=== PATIENT | male | born 1945 | race Caucasian/White ===

== ENCOUNTER 2016-11-29 21:33 | Emergency (ER) | payer OTHER ==
[2016-11-29 22:15] VITALS: BP 143/65
--- NOTE | 2016-11-30 01:37 | ER ---
DATE SEEN: 11/29/2016 TIME SEEN: The patient was seen at 2140 hours. CHIEF COMPLAINT: Drainage from surgical wound, from 11/22/2016. SURGERY: Laminectomy performed at [facility]. He postoperatively had more bleeding from the wound as anticipated. On 11/24, he had soaked dressing. He has progressive decreased bleeding since then. He was seen at [facility] as dressings were changed on the subsequent day, 11/25 and the bleeding has slowly decreased. He was also seen on 11/29/2016 at [facility] and noted slight bruising and drainage and change of dressing also. He is here to see me because he has a small area of blood on his dressing and is concerned about it. His pain has markedly decrease from what it was before the surgery, although he has constant recurrent persistent pre-surgery and postop surgery pain that radiates down the anterior thigh on the right side to his knee. He denies dysesthesia in lower extremities. His gait is decreased. He walks with slight truncal flexion because of his massive obesity, increased girth, and the chronic low back pain and the surgery. He was a staff sergeant in the for 21 years and he is a . The patient is obese, 255 pounds. Smoked 5 packs a day for 20 years, but stopped many years ago (1962). Alcohol negative. At one time in the was heavy into drinking alcohol. Denies drug abuse. He is treated for hypertension. CURRENT MEDICATIONS: 1. Diabetes, also hypertension. Was treated for hypertension and uses tamsulosin. 2. Tizanidine for his back pain. 3. Aspirin daily. 4. Docusate sodium. 5. Amlodipine. 6. Norvasc 5 mg daily. 7. Chlorpheniramine p.r.n. 8. Finasteride 5 mg. 9. Glipizide 2.5 mg for breakfast. 10.Hydrochlorothiazide 25 mg daily. ALLERGIES: None. REVIEW OF SYSTEMS: Otherwise, negative except for noted above. PHYSICAL EXAMINATION: VITAL SIGNS: Blood pressure of 169/77, heart rate 80, respirations 20, oxygen saturation 98%, temperature is 36.5 degrees. CONSTITUTIONAL: Markedly obese, has truncal flexion. He has mild discomfort in lower back, but he attributes it to his back surgery and that is not new, it has been present since surgery. He has chronic pain that travels down his right anterior thigh, which is not new. Very pleasant, missing several teeth. He is articulate. He is attended by a relative young girl. HEENT: TMs negative. Pharynx without abnormality. LUNGS: Clear to auscultation without rales, rhonchi, or wheezes. HEART: S1, S2. No irregular rate or rhythm. Distant heart sounds noted. ABDOMEN: Soft. Bowel sounds present. No abdominal discomfort. Wound dressing taken off. He has mild serosanguineous drainage about a centimeter and half, right superior portion of the wound. No evidence for fresh red blood bleeding. The wound is clean. There is mild ecchymosis in the lateral side of the wound. The Steri-Strips are normal in appearance. EXTREMITIES: Without tenderness, decreased muscle strength and atrophy of right thigh compared to the left thigh. Deep tendon reflexes, present knee jerks but absent ankle jerks. Did not do a straight leg raise. ASSESSMENT: 1. Serosanguineous fluid from the wound, previous lumbar surgeries 7 days ago. He is 6 days postop. 2. Obesity. 3. History of heavy smoking 25-pack per day for 20 years at one time. Alcohol excess up until 1962, then he discontinued drinking. Decreased hearing. PLAN: Reassure. keeping changing the dressing as instructed by the surgical staff. If any sign of erythema, increased swelling, increased warmth or tenderness see surgeon. /[id number] SHI/COLETTE HERNÁNDEZ
== END 2016-11-29 22:15 | disposition home or self-care (01) ==
LOC: FB.ED 21:33
DX: T81.89XA Other complications of procedures, not elsewhere classified, initial encounter (principal); F17.210 Nicotine dependence, cigarettes, uncomplicated; E11.9 Type 2 diabetes mellitus without complications; I10 Essential (primary) hypertension; Z79.82 Long term (current) use of aspirin; Z79.899 Other long term (current) drug therapy
CPT/HCPCS: 99282; 99283

== ENCOUNTER 2018-11-12 11:12 | Inpatient (IN) | payer OTHER ==
--- NOTE | 2018-11-12 11:40 | EDM.PDOC ---
ED HPI GENERAL MEDICAL PROBLEM - General Chief Complaint: General Stated Complaint: SOB, FEVER, DIZZINESS Time Seen by Provider: 11/12/18 11:12 Source of Information: Reports: Patient, Family History Limitations: Reports: Physical Impairment, Respiratory Distress - History of Present Illness INITIAL COMMENTS - FREE TEXT/NARRATIVE: 73 y.o.w.m with a H/O COPD, chronic low back pain, S/P umbilical hernia repair at the [facility] recently, came to the ed with his Daughter due to abd. pain, SOB. His Pulse ox was 88 on arrival. He has a breathing machine at home which would not help. He can walk only short distances. The limiting factor is not his breathing but his low back pain, which is chronic. [facility] called [facility], advising him to go to [facility]. No trauma, no CP. Temp 38.4 BP 154/74 Pulse 99 RR 20 Pulse ox 90% on RA Onset Date: 11/09/18 Onset Time: 07:00 Duration: Day(s):, Getting Worse, Intermittent Location: Reports: Chest, Abdomen, Back Quality: Reports: Dull Severity: Moderate Improves with: Reports: Rest Worsens with: Reports: Movement Context: Reports: Other (COPD, Low back pain, abd. pain) Associated Symptoms: Reports: Cough, Shortness of Breath, Other (chronic low back pin) Generalized Pain Score (Numeric/FACES): 10 - Related Data Allergies Allergy/AdvReac Type Severity Reaction Status Date / Time No Known Allergies Allergy Verified 11/12/18 11:16 Home Meds: Home Meds Albuterol Sulfate [Proventil Hfa] 1 puff INH QID 11/29/16 [History] Finasteride 5 mg PO DAILY 11/29/16 [History] Tamsulosin [Tamsulosin 24 Hr] 0.4 mg PO BEDTIME 11/29/16 [History] amLODIPine [Norvasc] 5 mg PO DAILY 11/29/16 [History] glipiZIDE [Glucotrol XL] 10 mg PO BID 11/29/16 [History] Baclofen 10 mg PO TID 06/23/18 [History] Gabapentin [Neurontin] 300 mg PO TID 06/23/18 [History] Lidocaine 5% [Lidoderm 5%] 2 patch TOP DAILY 06/23/18 [History] Simvastatin 20 mg PO BEDTIME 06/23/18 [History] Vardenafil HCl [Levitra] 20 mg PO DAILY PRN 06/23/18 [History] Acetaminophen [Tylenol] 975 mg PO Q6H 11/12/18 [History] Cyclobenzaprine [Flexeril] 10 mg PO TID PRN 11/12/18 [History] Polyethylene Glycol 3350 [Miralax] 17 gm PO DAILY 11/12/18 [History] oxyCODONE 5 mg PO Q6H PRN 11/12/18 [History] Past Medical History Cardiovascular History: Reports: High Cholesterol, Hypertension Respiratory History: Reports: Asthma Genitourinary History: Reports: Prostate Disorder Musculoskeletal History: Reports: Arthritis Neurological History: Reports: Other (See Below) Other Neuro History: numbness R leg from back. Endocrine/Metabolic History: Reports: Diabetes, Type I, Obesity/BMI 30+ Dermatologic History: Reports: Other (See Below) Other Dermatologic History: freq rashes - Infectious Disease History Infectious Disease History: Reports: Chicken Pox - Past Surgical History GI Surgical History: Reports: Colonoscopy, Hernia, Inguinal, Hernia Repair/Other Male Surgical History: Reports: None Neurological Surgical History: Reports: Other (See Below) Other Neurological Surgeries/Procedures: back surgery x 3 Musculoskeletal Surgical History: Reports: Other (See Below) Other Musculoskeletal Surgeries/Procedures:: L3-4 laminectomy 11-22-16 Social & Family History - Family History Family Medical History: Noncontributory - Tobacco Use Smoking Status *Q: Former Smoker Used Tobacco, but Quit: Yes Month/Year Tobacco Last Used: 1988 - Caffeine Use Caffeine Use: Reports: None - Recreational Drug Use Recreational Drug Use: No ED ROS GENERAL - Review of Systems Review Of Systems: See Below Constitutional: Reports: No Symptoms HEENT: Reports: No Symptoms Respiratory: Reports: Shortness of Breath Cardiovascular: Reports: No Symptoms Endocrine: Reports: No Symptoms GI/Abdominal: Reports: Abdominal Pain (periumbilical pain) : Reports: No Symptoms Musculoskeletal: Reports: Back Pain Skin: Reports: Wound (healing surgical abd. wound) Neurological: Reports: No Symptoms Psychiatric: Reports: No Symptoms Hematologic/Lymphatic: Reports: No Symptoms Immunologic: Reports: No Symptoms ED EXAM, GENERAL - Physical Exam Exam: See Below Exam Limited By: Physical Impairment General Appearance: Alert, WD/WN, Obese (morbid) Eye Exam: Bilateral Eye: Normal Inspection Ears: Normal External Exam Ear Exam: Bilateral Ear: Auricle Normal Nose: Normal Inspection, Normal Mucosa, No Blood Throat/Mouth: Normal Lips, Normal Voice, No Airway Compromise, Other (poor denti ) Head: Atraumatic, Normocephalic Neck: Normal Inspection, Supple, Non-Tender, Full Range of Motion Respiratory/Chest: Respiratory Distress (O2 88% on RA), Decreased Breath Sounds Cardiovascular: Normal Peripheral Pulses, Regular Rate, Rhythm Peripheral Pulses: 1+: Brachial (R) GI/Abdominal: Normal Bowel Sounds, Tender (S/O [facility]nia repair at the [facility] ) (Male) Exam: Other Rectal (Males) Exam: Deferred Back Exam: Decreased Range of Motion, Muscle Spasm, Paraspinal Tenderness, Vertebral Tenderness Extremities: Normal Inspection, Normal Range of Motion Neurological: Alert, Oriented, CN II-XII Intact, Normal Cognition, Abnormal Gait (because of back pain) Skin Exam: Warm, Dry, Normal Color, No Rash, Rash (surgical wound periumbilic) Lymphatic: No Adenopathy Course - Vital Signs Text/Narrative:: 73 y.o.w.m with a H/O COPD, chronic low back pain, S/P umbilical hernia repair at the [facility] recently, came to the ed with his Daughter due to abd. pain, SOB. His Pulse ox was 88 on arrival. He has a breathing machine at home which would not help. He can walk only short distances. The limiting factor is not his breathing but his low back pain, which is chronic. [facility], advising him to go to [facility]. No trauma, no CP. Temp 38.4 BP 154/74 Pulse 99 RR 20 Pulse ox 90% on RA PE: Obese 73 y.o.w.m with chronic low back pain, COPF fever, S/P umbilical hernia repair. Imaging: CXR: COPD with infiltrates R of lung. Abd/ flat upright: Non obstructive BGP as per RAD, official report Labs: WBC 15.4 HGB 10.7 GFR 37 Lactic acid 2.6 Cr 1.8 Ca 8.4 Glc 188 Bcx results are pending Impression: COPD exacerbation, pneumonia right lung, chronic low back pain, S/P umbilical hernia repair. Tx: Duo neb, Solu medrol, O2 by [facility], Levaquin Reexam: imroved 2.03 pm Consultation: Dr. Lincoln, Hospitalist: Admit as inpatient Last Recorded V/S: Last Vital Signs Temp 37.2 C 11/12/18 14:40 Pulse 102 H 11/12/18 14:40 Resp 20 11/12/18 18:21 BP 116/73 11/12/18 14:40 Pulse Ox 99 11/12/18 14:40 - Orders/Labs/Meds Orders: Active Orders 24 hr Category Date Time Status RT Aerosol Therapy [RC] ASDIRECTED Care 11/12/18 13:17 Active Abdomen 2V AP Flat Upright [CR] Stat Exams 11/12/18 11:33 Taken Chest 2V [CR] Stat Exams 11/12/18 12:28 Taken CULTURE BLOOD [BC] Urgent Lab 11/12/18 11:50 Results CULTURE BLOOD [BC] Urgent Lab 11/12/18 13:55 Received Blood Culture x2 Reflex Set [OM.PC] Urgent Oth 11/12/18 11:33 Ordered Medication Orders Albuterol (Proventil Neb Soln) 2.5 mg NEB Q4H PRN PRN Reason: sob Enoxaparin Sodium (Lovenox) 40 mg SUBCUT Q24H [facility] Last Admin: 11/12/18 18:43 Dose: 40 mg Levofloxacin/Dextrose 750 mg/ (Premix) 150 mls @ 100 mls/hr IV Q24H [facility] Piperacillin Sod/Tazobactam (Sod 3.375 gm/ Sodium Chloride) 50 mls @ 100 mls/ hr IV Q6H [facility] Last Admin: 11/12/18 18:43 Dose: 100 mls/hr Sodium Chloride (Normal Saline) 1,000 mls @ 125 mls/hr IV ASDIRECTED [facility] Last Admin: 11/12/18 18:37 Dose: 125 mls/hr Methylprednisolone Sodium Succinate (Solu-Medrol) 125 mg IVPUSH Q8H [facility] Sodium Chloride (Saline Flush) 10 ml FLUSH ASDIRECTED PRN PRN Reason: Keep Vein Open Last Admin: 11/12/18 15:34 Dose: 10 ml Labs: Laboratory Tests 11/12/18 11/12/18 11/12/18 Range/Units 11:50 11:50 12:42 WBC 15.9 H (4.5-12.0) X10-3/uL RBC 3.02 L (4.30-5.75) x10(6)uL Hgb 10.7 L (13.5-17.8) g/dL Hct 31.7 (30.0-51.3) % MCV 104.8 H (80-96) fL MCH 35.5 H (27.7-33.6) pg MCHC 33.8 (32.2-35.4) g/dL RDW 13.5 (11.5-15.5) % Plt Count 325 (125-369) X10(3)uL MPV 7.4 (7.4-10.4) fL Add Manual Diff Yes Neutrophils % (Manual) 81 (46-82) % Band Neutrophils % 5 (0-6) % Lymphocytes % (Manual) 4 L (13-37) % Monocytes % (Manual) 8 (4-12) % Eosinophils % (Manual) 2 (0-5) % Macrocytosis Moderate H Sodium 135 (135-145) mmol/L Potassium 4.1 (3.5-5.3) mmol/L Chloride 100 (100-110) mmol/L Carbon Dioxide 25 (21-32) mmol/L BUN 17 (7-18) mg/dL Creatinine 1.8 H (0.70-1.30) mg/dL Est Cr Clr Drug Dosing 35.46 mL/min Estimated GFR (MDRD) 37 L (>60) BUN/Creatinine Ratio 9.4 (9-20) Glucose 188 H (80-116) mg/dL Lactic Acid (0.4-2.2) mmol/L Calcium 8.4 L (8.6-10.2) mg/dL Urine Color Yellow (YELLOW) Urine Appearance Slightly cloudy (CLEAR) Urine pH 5.0 (5.0-6.5) Ur Specific [place] 1.020 (1.010-1.025) Urine Protein 30 H (NEGATIVE) mg/dL Urine Glucose (UA) Normal (NORMAL) mg/dL Urine Ketones Negative (NEGATIVE) mg/dL Urine Occult Blood Moderate H (NEGATIVE) Urine Nitrite Negative (NEGATIVE) Urine Bilirubin Negative (NEGATIVE) Urine Urobilinogen 1 H (NEGATIVE) mg/dL Ur Leukocyte Esterase Negative (NEGATIVE) Urine RBC 0-5 (0-5) Urine WBC 0-5 (0-5) Ur Squamous Epith Cells Few H (NS,R,O) Urine Bacteria Few H (NS) 04/07/19 Range/Units 13:55 WBC (4.5-12.0) X10-3/uL RBC (4.30-5.75) x10(6)uL Hgb (13.5-17.8) g/dL Hct (30.0-51.3) % MCV (80-96) fL MCH (27.7-33.6) pg MCHC (32.2-35.4) g/dL RDW (11.5-15.5) % Plt Count (125-369) X10(3)uL MPV (7.4-10.4) fL Add Manual Diff Neutrophils % (Manual) (46-82) % Band Neutrophils % (0-6) % Lymphocytes % (Manual) (13-37) % Monocytes % (Manual) (4-12) % Eosinophils % (Manual) (0-5) % Macrocytosis Sodium (135-145) mmol/L Potassium (3.5-5.3) mmol/L Chloride (100-110) mmol/L Carbon Dioxide (21-32) mmol/L BUN (7-18) mg/dL Creatinine (0.70-1.30) mg/dL Est Cr Clr Drug Dosing mL/min Estimated GFR (MDRD) (>60) BUN/Creatinine Ratio (9-20) Glucose (80-116) mg/dL Lactic Acid 2.6 H (0.4-2.2) mmol/L Calcium (8.6-10.2) mg/dL Urine Color (YELLOW) Urine Appearance (CLEAR) Urine pH (5.0-6.5) Ur Specific [place] (1.010-1.025) Urine Protein (NEGATIVE) mg/dL Urine Glucose (UA) (NORMAL) mg/dL Urine Ketones (NEGATIVE) mg/dL Urine Occult Blood (NEGATIVE) Urine Nitrite (NEGATIVE) Urine Bilirubin (NEGATIVE) Urine Urobilinogen (NEGATIVE) mg/dL Ur Leukocyte Esterase (NEGATIVE) Urine RBC (0-5) Urine WBC (0-5) Ur Squamous Epith Cells (NS,R,O) Urine Bacteria (NS) Meds: Medications Generic Name Dose Route Start Last Admin Trade Name Freq PRN Reason Stop Dose Admin Albuterol 2.5 mg 11/12/18 14:27 Proventil Neb Soln NEB Q4H PRN sob Enoxaparin Sodium 40 mg 11/12/18 18:00 11/12/18 18:43 Lovenox SUBCUT 40 mg Q24H [facility] Administration Levofloxacin/Dextrose 750 mg/ 150 mls @ 100 mls/hr 11/13/18 13:00 Premix IV Q24H [facility] Piperacillin Sod/Tazobactam 50 mls @ 100 mls/hr 11/12/18 18:00 11/12/18 18:43 Sod 3.375 gm/ Sodium Chloride IV 100 mls/hr Q6H [facility] Administration Sodium Chloride 1,000 mls @ 125 mls/hr 11/12/18 18:15 11/12/18 18:37 Normal Saline IV 125 mls/hr ASDIRECTED [facility] Administration Methylprednisolone Sodium Succinate 125 mg 11/12/18 20:00 Solu-Medrol IVPUSH Q8H [facility] Sodium Chloride 10 ml 11/12/18 15:04 11/12/18 15:34 Saline Flush FLUSH 10 ml ASDIRECTED PRN Administration Keep Vein Open Discontinued Medications Generic Name Dose Route Start Last Admin Trade Name Freq PRN Reason Stop Dose Admin Albuterol/Ipratropium 3 ml 11/12/18 13:16 11/12/18 13:19 Duoneb 3.0-0.5 Mg/3 Ml NEB 11/12/18 13:17 3 ml ONETIME STA Administration Ibuprofen 600 mg 11/12/18 13:02 11/12/18 13:07 Motrin PO 11/12/18 13:03 600 mg ONETIME ONE Administration Levofloxacin 500 mg 11/12/18 14:02 11/12/18 14:08 Levaquin PO 11/12/18 14:03 500 mg ONETIME ONE Administration Methylprednisolone Sodium Succinate 125 mg 11/12/18 13:17 11/12/18 13:19 Solu-Medrol IM 11/12/18 13:18 125 mg ONETIME ONE Administration Departure - Departure Time of Disposition: 14:00 Disposition: Admitted As Inpatient 64 Condition: Fair Clinical Impression: COPD (chronic obstructive pulmonary disease), Pneumonia - Discharge Information - My Orders Last 24 Hours: My Active Orders 11/12/18 11:33 Abdomen 2V AP Flat Upright [CR] Stat Blood Culture x2 Reflex Set [OM.PC] Urgent 11/12/18 11:50 CULTURE BLOOD [BC] Urgent 11/12/18 12:28 Chest 2V [CR] Stat 11/12/18 13:17 RT Aerosol Therapy [RC] ASDIRECTED 11/12/18 13:55 CULTURE BLOOD [BC] Urgent - Assessment/Plan Last 24 Hours: My Active Orders 11/12/18 11:33 Abdomen 2V AP Flat Upright [CR] Stat Blood Culture x2 Reflex Set [OM.PC] Urgent 11/12/18 11:50 CULTURE BLOOD [BC] Urgent 11/12/18 12:28 Chest 2V [CR] Stat 11/12/18 13:17 RT Aerosol Therapy [RC] ASDIRECTED 11/12/18 13:55 CULTURE BLOOD [BC] Urgent
[2018-11-12] MEDS ORDERED: Ibuprofen 600 MG Tab PO ONE (13:02)
[2018-11-12] MEDS ORDERED: Albuterol/Ipratropium 3.0-0.5 MG/3 ML Neb Soln NEB STA (13:16)
[2018-11-12] MEDS ORDERED: methylPREDNISolone Sodium Succinate 125 MG/2 ML SDV IM ONE (13:17)
[2018-11-12] MEDS ORDERED: Levofloxacin 500 MG Tab PO ONE (14:02)
[2018-11-12] MEDS ORDERED: Albuterol 0.083% 2.5 MG/3 ML Neb Soln NEB PRN (14:27)
[2018-11-12] MEDS: Sodium Chloride 0.9% 10 ML Syringe FLUSH PRN (15:34)
--- NOTE | 2018-11-12 18:10 | PCM.HP ---
H&P History of Present Illness - General Date of Service: 11/12/18 Admit Problem/Dx: Admission Diagnosis/Problem Admission Diagnosis/Problem COPD, Moderate chronic obstructive pulmonary disease Source of Information: Patient, Old Records - History of Present Illness Initial Comments - Free Text/Narative: This is a 73-year-old male who was admitted for shortness of breath;cough fever ; dizziness symptoms lasting 2 days. Insidious onset,over 2 days.Initially in usual state of health. Cough productive.Fever low grade. Of note,10 days ago he had a hernia repair at the [facility] and stayed in patient for a few days. He has a history of type 2 diabetes, hypertension and obesity that are stable.Gordon also has chronic back pain for which he has a nerve stimulator. He further reports a remote history of COPD ,though he quit smoking more than 25 years ago. Uses albuterol when necessary Generalized Pain Score (Numeric/FACES): 10 - Related Data Allergies/Adverse Reactions: Allergies Allergy/AdvReac Type Severity Reaction Status Date / Time No Known Allergies Allergy Verified 11/12/18 11:16 Home Medications: Home Meds Albuterol Sulfate [Proventil Hfa] 1 puff INH QID 11/29/16 [History] Finasteride 5 mg PO DAILY 11/29/16 [History] Tamsulosin [Tamsulosin 24 Hr] 0.4 mg PO BEDTIME 11/29/16 [History] amLODIPine [Norvasc] 5 mg PO DAILY 11/29/16 [History] glipiZIDE [Glucotrol XL] 10 mg PO BID 11/29/16 [History] Baclofen 10 mg PO TID 06/23/18 [History] Gabapentin [Neurontin] 300 mg PO TID 06/23/18 [History] Lidocaine 5% [Lidoderm 5%] 2 patch TOP DAILY 06/23/18 [History] Simvastatin 20 mg PO BEDTIME 06/23/18 [History] Vardenafil HCl [Levitra] 20 mg PO DAILY PRN 06/23/18 [History] Acetaminophen [Tylenol] 975 mg PO Q6H 11/12/18 [History] Cyclobenzaprine [Flexeril] 10 mg PO TID PRN 11/12/18 [History] Polyethylene Glycol 3350 [Miralax] 17 gm PO DAILY 11/12/18 [History] oxyCODONE 5 mg PO Q6H PRN 11/12/18 [History] Past Medical History Cardiovascular History: Reports: High Cholesterol, Hypertension Respiratory History: Reports: Asthma Genitourinary History: Reports: Prostate Disorder Musculoskeletal History: Reports: Arthritis Neurological History: Reports: Other (See Below) Other Neuro History: numbness R leg from back. Endocrine/Metabolic History: Reports: Diabetes, Type I, Obesity/BMI 30+ Dermatologic History: Reports: Other (See Below) Other Dermatologic History: freq rashes - Infectious Disease History Infectious Disease History: Reports: Chicken Pox - Past Surgical History GI Surgical History: Reports: Colonoscopy, Hernia, Inguinal, Hernia Repair/Other Male Surgical History: Reports: None Neurological Surgical History: Reports: Other (See Below) Other Neurological Surgeries/Procedures: back surgery x 3 Musculoskeletal Surgical History: Reports: Other (See Below) Other Musculoskeletal Surgeries/Procedures:: L3-4 laminectomy 11-22-16 Social & Family History - Family History Family Medical History: Noncontributory - Tobacco Use Smoking Status *Q: Former Smoker Used Tobacco, but Quit: Yes Month/Year Tobacco Last Used: 08/1999 Second Hand Smoke Exposure: No - Caffeine Use Caffeine Use: Reports: Coffee - Recreational Drug Use Recreational Drug Use: No H&P Review of Systems - Review of Systems: Review Of Systems: ROS reveals no pertinent complaints other than HPI. Exam - Exam Exam: See Below - Vital Signs Vital Signs: Last Vital Signs Temp 98.9 F 11/12/18 14:40 Pulse 102 H 11/12/18 14:40 Resp 20 11/12/18 14:40 BP 116/73 11/12/18 14:40 Pulse Ox 99 11/12/18 14:40 Weight: 113.534 kg - Exam Quality Assessment: Supplemental Oxygen General: Alert, Oriented, 4 HEENT: PERRLA, Hearing Intact, Mucosa Moist & [place], Nares Patent, Normal Nasal Septum, Posterior Pharynx Clear, Conjunctiva Clear, EOMI, EACs Clear, TMs Clear Neck: Supple, Trachea Midline, 2 Lungs: Rales Cardiovascular: Regular Rate, Regular Rhythm GI/Abdominal Exam: Distended, Tender (Umbilicus) (Male) Exam: No Hernia Rectal (Males) Exam: Normal Exam, Normal Rectal Tone, Prostate Normal Back Exam: Normal Inspection, Full Range of Motion, NT Extremities: Normal Inspection, Normal Range of Motion, Non-Tender, No Pedal Edema, Normal Capillary Refill Skin: Warm, Dry, Intact Neurological: Cranial Nerves Intact, Reflexes Equal Bilateral Neuro Extensive - Mental Status: Alert, Oriented x3, Normal Mood/Affect, Normal Cognition Neuro Extensive - Motor, Sensory, Reflexes: CN II-XII Intact, Normal Gait, Normal Reflexes Psychiatric: Alert, Normal Affect, Normal Mood - Patient Data Lab Results Last 24 hrs: Laboratory Results - last 24 hr 11/12/18 11/12/18 11/12/18 Range/Units 11:50 11:50 12:42 WBC 15.9 H (4.5-12.0) X10-3/uL RBC 3.02 L (4.30-5.75) x10(6)uL Hgb 10.7 L (13.5-17.8) g/dL Hct 31.7 (30.0-51.3) % MCV 104.8 H (80-96) fL MCH 35.5 H (27.7-33.6) pg MCHC 33.8 (32.2-35.4) g/dL RDW 13.5 (11.5-15.5) % Plt Count 325 (125-369) X10(3)uL MPV 7.4 (7.4-10.4) fL Add Manual Diff Yes Neutrophils % (Manual) 81 (46-82) % Band Neutrophils % 5 (0-6) % Lymphocytes % (Manual) 4 L (13-37) % Monocytes % (Manual) 8 (4-12) % Eosinophils % (Manual) 2 (0-5) % Macrocytosis Moderate H Sodium 135 (135-145) mmol/L Potassium 4.1 (3.5-5.3) mmol/L Chloride 100 (100-110) mmol/L Carbon Dioxide 25 (21-32) mmol/L BUN 17 (7-18) mg/dL Creatinine 1.8 H (0.70-1.30) mg/dL Est Cr Clr Drug Dosing 35.46 mL/min Estimated GFR (MDRD) 37 L (>60) BUN/Creatinine Ratio 9.4 (9-20) Glucose 188 H (80-116) mg/dL Lactic Acid (0.4-2.2) mmol/L Calcium 8.4 L (8.6-10.2) mg/dL Urine Color Yellow (YELLOW) Urine Appearance Slightly cloudy (CLEAR) Urine pH 5.0 (5.0-6.5) Ur Specific [place] 1.020 (1.010-1.025) Urine Protein 30 H (NEGATIVE) mg/dL Urine Glucose (UA) Normal (NORMAL) mg/dL Urine Ketones Negative (NEGATIVE) mg/dL Urine Occult Blood Moderate H (NEGATIVE) Urine Nitrite Negative (NEGATIVE) Urine Bilirubin Negative (NEGATIVE) Urine Urobilinogen 1 H (NEGATIVE) mg/dL Ur Leukocyte Esterase Negative (NEGATIVE) Urine RBC 0-5 (0-5) Urine WBC 0-5 (0-5) Ur Squamous Epith Cells Few H (NS,R,O) Urine Bacteria Few H (NS) 11/12/18 Range/Units 13:55 WBC (4.5-12.0) X10-3/uL RBC (4.30-5.75) x10(6)uL Hgb (13.5-17.8) g/dL Hct (30.0-51.3) % MCV (80-96) fL MCH (27.7-33.6) pg MCHC (32.2-35.4) g/dL RDW (11.5-15.5) % Plt Count (125-369) X10(3)uL MPV (7.4-10.4) fL Add Manual Diff Neutrophils % (Manual) (46-82) % Band Neutrophils % (0-6) % Lymphocytes % (Manual) (13-37) % Monocytes % (Manual) (4-12) % Eosinophils % (Manual) (0-5) % Macrocytosis Sodium (135-145) mmol/L Potassium (3.5-5.3) mmol/L Chloride (100-110) mmol/L Carbon Dioxide (21-32) mmol/L BUN (7-18) mg/dL Creatinine (0.70-1.30) mg/dL Est Cr Clr Drug Dosing mL/min Estimated GFR (MDRD) (>60) BUN/Creatinine Ratio (9-20) Glucose (80-116) mg/dL Lactic Acid 2.6 H (0.4-2.2) mmol/L Calcium (8.6-10.2) mg/dL Urine Color (YELLOW) Urine Appearance (CLEAR) Urine pH (5.0-6.5) Ur Specific [place] (1.010-1.025) Urine Protein (NEGATIVE) mg/dL Urine Glucose (UA) (NORMAL) mg/dL Urine Ketones (NEGATIVE) mg/dL Urine Occult Blood (NEGATIVE) Urine Nitrite (NEGATIVE) Urine Bilirubin (NEGATIVE) Urine Urobilinogen (NEGATIVE) mg/dL Ur Leukocyte Esterase (NEGATIVE) Urine RBC (0-5) Urine WBC (0-5) Ur Squamous Epith Cells (NS,R,O) Urine Bacteria (NS) Result Diagrams: 11/12/18 11:50 11/12/18 11:50 [place] Results Last 24 hrs: Microbiology 11/12/18 11:50 Anaerobic Blood Culture - Final Blood - Venous EKG INTERPRETATION Rhythm: NSR - Problem List (1) CAP (community acquired pneumonia) SNOMED Code(s): 787952555 ICD Code: J18.9 - PNEUMONIA, UNSPECIFIED ORGANISM Status: Acute Current Visit: Yes Qualifiers: Laterality: right (2) HTN (hypertension) SNOMED Code(s): 87130443 ICD Code: I10 - ESSENTIAL (PRIMARY) HYPERTENSION Status: Acute Current Visit: Yes Qualifiers: Hypertension type: essential hypertension Qualified Code(s): I10 - Essential (primary) hypertension (3) Diabetes type 2, uncontrolled SNOMED Code(s): 559319332, 248177208 ICD Code: E11.65 - TYPE 2 DIABETES MELLITUS WITH HYPERGLYCEMIA Status: Chronic Current Visit: Yes Qualifiers: Glycemic state: with hyperglycemia Qualified Code(s): E11.65 - Type 2 diabetes mellitus with hyperglycemia (4) COPD exacerbation SNOMED Code(s): 495202190 ICD Code: J44.1 - CHRONIC OBSTRUCTIVE PULMONARY DISEASE W (ACUTE) EXACERBATION Status: Chronic Current Visit: Yes (5) Back pain SNOMED Code(s): 785914201 ICD Code: M54.9 - DORSALGIA, UNSPECIFIED Status: Chronic Current Visit: No Qualifiers: Back pain location: low back pain Chronicity: unspecified Back pain laterality: bilateral Sciatica presence: without sciatica Qualified Code(s) : M54.5 - Low back pain Problem List Initiated/Reviewed/Updated: Yes Orders Last 24hrs: Active Orders 24 hr Category Date Time Status Patient Status [ADT] Routine ADT 11/12/18 14:21 Active Oxygen Therapy [RC] PRN Care 11/12/18 14:21 Active RT Aerosol Therapy [RC] ASDIRECTED Care 11/12/18 13:17 Active Up With Assistance [RC] ASDIRECTED Care 11/12/18 14:21 Active VTE/DVT Education [RC] Per Unit Routine Care 11/12/18 14:21 Active Vital Signs [RC] Q4H Care 11/12/18 14:21 Active Heart Healthy Diet [DIET] Diet 11/12/18 Breakfast Ordered Abdomen 2V AP Flat Upright [CR] Stat Exams 11/12/18 11:33 Taken Chest 2V [CR] Stat Exams 11/12/18 12:28 Taken Chest w Cont [CT] Routine Exams 11/12/18 18:04 Ordered CBC WITH AUTO DIFF [HEME] AM Lab 11/13/18 05:11 Ordered COMPREHENSIVE METABOLIC PN,CMP [CHEM] AM Lab 11/13/18 05:11 Ordered CULTURE BLOOD [BC] Urgent Lab 11/12/18 11:50 Results CULTURE BLOOD [BC] Urgent Lab 11/12/18 13:55 Received PRO B-TYPE NATRIUR PEPT,BNPPRO [CHEM] DAILY Lab 11/13/18 05:11 Ordered Albuterol [Proventil Neb Soln] Med 11/12/18 14:27 Active 2.5 mg NEB Q4H PRN Levofloxacin/Dextrose 5%-Water [Levaquin in D5W 750 MG/ Med 11/13/18 13:00 Ordered 150 ML] 750 mg Premix Bag 1 bag IV Q24H Sodium Chloride 0.9% [Saline Flush] Med 11/12/18 15:04 Active 10 ml FLUSH ASDIRECTED PRN methylPREDNISolone Sod Succ [Solu-MEDROL] Med 11/12/18 18:15 Ordered 125 mg IVPUSH Q8H Blood Culture x2 Reflex Set [OM.PC] Urgent Oth 11/12/18 11:33 Ordered Blood Culture x2 Reflex Set [OM.PC] Urgent Oth 11/12/18 14:28 Ordered Peripheral IV Insertion Adult [OM.PC] Routine Oth 11/12/18 15:04 Ordered Resuscitation Status Routine Resus Stat 11/12/18 14:21 Ordered Medication Orders Albuterol (Proventil Neb Soln) 2.5 mg NEB Q4H PRN PRN Reason: sob Levofloxacin/Dextrose 750 mg/ (Premix) 150 mls @ 100 mls/hr IV Q24H [facility] Methylprednisolone Sodium Succinate (Solu-Medrol) 125 mg IVPUSH Q8H [facility] Sodium Chloride (Saline Flush) 10 ml FLUSH ASDIRECTED PRN PRN Reason: Keep Vein Open Last Admin: 11/12/18 15:34 Dose: 10 ml Assessment/Plan Comment:: The chest x-ray that I reviewed is suggestive of an infiltrate on the right middle lobe. I think we can make a case for community-acquired pneumonia, but given his recent hospital stay 1 is worried also about hospital-acquired pneumonia. Due to his recent surgery,a PE must be entertained. So CT of the chest has been ordered.For now will treat him with Zosyn and Levaquin. We'll also treat him with SVNs and supplemental oxygenation by nasal cannula.
[2018-11-12] MEDS: Sodium Chloride 0.9% 1,000 ML IV SCH (18:37)
[2018-11-12] MEDS: Enoxaparin 40 MG/0.4 ML Syringe SUBCUT SCH (18:43)
[2018-11-12] MEDS: Piperacillin/Tazobactam 3.375 GM in Sodium Chloride 0.9% 50 ML IV SCH (18:43)
[2018-11-12] MEDS ORDERED: VARDENAFIL HCL 20 MG PO PRN (19:49)
[2018-11-12] MEDS ORDERED: Cyclobenzaprine 10 MG Tab PO PRN (19:49)
[2018-11-12] MEDS ORDERED: oxyCODONE 5 MG Tab PO PRN (19:49)
[2018-11-12] MEDS: methylPREDNISolone Sodium Succinate 125 MG/2 ML SDV IVPUSH SCH (20:49)
[2018-11-12] MEDS: Acetaminophen 325 MG Tab PO SCH (20:51)
[2018-11-12] MEDS: Tamsulosin 0.4 MG Cap.ER PO SCH (20:51)
[2018-11-12] MEDS: Baclofen 10 MG Tab PO SCH (20:52)
[2018-11-12] MEDS: Simvastatin 20 MG Tab PO SCH (20:52)
[2018-11-12] MEDS: Albuterol 8 GM Inhaler INH SCH (20:52)
[2018-11-12] MEDS ORDERED: Gabapentin 100 MG Cap PO SCH (21:00)
[2018-11-12] MEDS ORDERED: glipiZIDE 5 MG Tab.ER PO SCH (21:00)
[2018-11-13] MEDS: Piperacillin/Tazobactam 3.375 GM in Sodium Chloride 0.9% 50 ML IV SCH ×4 (00:29→17:32)
[2018-11-13] MEDS: Acetaminophen 325 MG Tab PO SCH ×4 (03:02→20:13)
[2018-11-13] MEDS: Sodium Chloride 0.9% 1,000 ML IV SCH (04:17)
[2018-11-13] MEDS: methylPREDNISolone Sodium Succinate 125 MG/2 ML SDV IVPUSH SCH ×3 (04:18→19:58)
[2018-11-13] MEDS: Albuterol 8 GM Inhaler INH SCH ×4 (06:07→21:21)
[2018-11-13] MEDS ORDERED: Piperacillin/Tazobactam 3.375 GM in Sodium Chloride 0.9% 50 ML IV SCH (07:30)
[2018-11-13] MEDS: glipiZIDE 10 MG Tab.ER PO SCH ×2 (08:53→21:19)
[2018-11-13] MEDS: Finasteride 5 MG Tab PO SCH (08:54)
[2018-11-13] MEDS: Lidocaine 5% 700 MG Patch TOP SCH (08:54)
[2018-11-13] MEDS: amLODIPine 5 MG Tab PO SCH (08:54)
[2018-11-13] MEDS: Baclofen 10 MG Tab PO SCH ×3 (08:54→21:20)
[2018-11-13] MEDS: Polyethylene Glycol 3350 Powder 17 GM Packet PO SCH (08:54)
--- NOTE | 2018-11-13 08:54 | PCM.PN ---
- General Info Date of Service: 11/13/18 Subjective Update: Gordon feels much better, is off oxygen and is temperature is come down. He still has a cough but denies any chest pain Functional Status: Reports: Pain Controlled - Review of Systems HEENT: Reports: No Symptoms Pulmonary: Reports: Cough Cardiovascular: Reports: No Symptoms Gastrointestinal: Reports: No Symptoms Genitourinary: Reports: No Symptoms Musculoskeletal: Reports: No Symptoms - Patient Data Vitals - Most Recent: Last Vital Signs Temp 97.6 F 11/13/18 07:48 Pulse 78 11/13/18 07:48 Resp 20 11/13/18 07:48 BP 141/69 H 11/13/18 07:48 Pulse Ox 97 11/13/18 07:48 Weight - Most Recent: 113.534 kg Lab Results Last 24 Hours: Laboratory Results - last 24 hr 11/12/18 11/12/18 11/12/18 Range/Units 11:50 11:50 12:42 WBC 15.9 H (4.5-12.0) X10-3/uL RBC 3.02 L (4.30-5.75) x10(6)uL Hgb 10.7 L (13.5-17.8) g/dL Hct 31.7 (30.0-51.3) % MCV 104.8 H (80-96) fL MCH 35.5 H (27.7-33.6) pg MCHC 33.8 (32.2-35.4) g/dL RDW 13.5 (11.5-15.5) % Plt Count 325 (125-369) X10(3)uL MPV 7.4 (7.4-10.4) fL Add Manual Diff Yes Neutrophils % (Manual) 81 (46-82) % Band Neutrophils % 5 (0-6) % Lymphocytes % (Manual) 4 L (13-37) % Monocytes % (Manual) 8 (4-12) % Eosinophils % (Manual) 2 (0-5) % Macrocytosis Moderate H Sodium 135 (135-145) mmol/L Potassium 4.1 (3.5-5.3) mmol/L Chloride 100 (100-110) mmol/L Carbon Dioxide 25 (21-32) mmol/L BUN 17 (7-18) mg/dL Creatinine 1.8 H (0.70-1.30) mg/dL Est Cr Clr Drug Dosing 35.46 mL/min Estimated GFR (MDRD) 37 L (>60) BUN/Creatinine Ratio 9.4 (9-20) Glucose 188 H (80-116) mg/dL Lactic Acid (0.4-2.2) mmol/L Calcium 8.4 L (8.6-10.2) mg/dL Total Bilirubin (0.1-1.3) mg/dL AST (5-25) IU/L ALT (12-36) U/L Alkaline Phosphatase (56-112) IU/L NT-Pro-B Natriuret Pep (<=450) pg/mL Total Protein (6.0-8.0) g/dL Albumin (3.2-4.6) g/dL Globulin g/dL Albumin/Globulin Ratio Urine Color Yellow (YELLOW) Urine Appearance Slightly cloudy (CLEAR) Urine pH 5.0 (5.0-6.5) Ur Specific [place] 1.020 (1.010-1.025) Urine Protein 30 H (NEGATIVE) mg/dL Urine Glucose (UA) Normal (NORMAL) mg/dL Urine Ketones Negative (NEGATIVE) mg/dL Urine Occult Blood Moderate H (NEGATIVE) Urine Nitrite Negative (NEGATIVE) Urine Bilirubin Negative (NEGATIVE) Urine Urobilinogen 1 H (NEGATIVE) mg/dL Ur Leukocyte Esterase Negative (NEGATIVE) Urine RBC 0-5 (0-5) Urine WBC 0-5 (0-5) Ur Squamous Epith Cells Few H (NS,R,O) Urine Bacteria Few H (NS) 11/12/18 11/13/18 11/13/18 Range/Units 13:55 06:30 06:30 WBC 8.7 (4.5-12.0) X10-3/uL RBC 2.73 L (4.30-5.75) x10(6)uL Hgb 9.6 L (13.5-17.8) g/dL Hct 28.7 L (30.0-51.3) % MCV 105.0 H (80-96) fL MCH 35.2 H (27.7-33.6) pg MCHC 33.5 (32.2-35.4) g/dL RDW 13.7 (11.5-15.5) % Plt Count 252 (125-369) X10(3)uL MPV 7.1 L (7.4-10.4) fL Add Manual Diff Yes Neutrophils % (Manual) 83 H (46-82) % Band Neutrophils % 9 H (0-6) % Lymphocytes % (Manual) 3 L (13-37) % Monocytes % (Manual) 5 (4-12) % Eosinophils % (Manual) (0-5) % Macrocytosis Moderate H Sodium (135-145) mmol/L Potassium (3.5-5.3) mmol/L Chloride (100-110) mmol/L Carbon Dioxide (21-32) mmol/L BUN (7-18) mg/dL Creatinine (0.70-1.30) mg/dL Est Cr Clr Drug Dosing mL/min Estimated GFR (MDRD) (>60) BUN/Creatinine Ratio (9-20) Glucose (80-116) mg/dL Lactic Acid 2.6 H (0.4-2.2) mmol/L Calcium (8.6-10.2) mg/dL Total Bilirubin (0.1-1.3) mg/dL AST (5-25) IU/L ALT (12-36) U/L Alkaline Phosphatase (56-112) IU/L NT-Pro-B Natriuret Pep 1314 H* (<=450) pg/mL Total Protein (6.0-8.0) g/dL Albumin (3.2-4.6) g/dL Globulin g/dL Albumin/Globulin Ratio Urine Color (YELLOW) Urine Appearance (CLEAR) Urine pH (5.0-6.5) Ur Specific [place] (1.010-1.025) Urine Protein (NEGATIVE) mg/dL Urine Glucose (UA) (NORMAL) mg/dL Urine Ketones (NEGATIVE) mg/dL Urine Occult Blood (NEGATIVE) Urine Nitrite (NEGATIVE) Urine Bilirubin (NEGATIVE) Urine Urobilinogen (NEGATIVE) mg/dL Ur Leukocyte Esterase (NEGATIVE) Urine RBC (0-5) Urine WBC (0-5) Ur Squamous Epith Cells (NS,R,O) Urine Bacteria (NS) 11/13/18 Range/Units 06:30 WBC (4.5-12.0) X10-3/uL RBC (4.30-5.75) x10(6)uL Hgb (13.5-17.8) g/dL Hct (30.0-51.3) % MCV (80-96) fL MCH (27.7-33.6) pg MCHC (32.2-35.4) g/dL RDW (11.5-15.5) % Plt Count (125-369) X10(3)uL MPV (7.4-10.4) fL Add Manual Diff Neutrophils % (Manual) (46-82) % Band Neutrophils % (0-6) % Lymphocytes % (Manual) (13-37) % Monocytes % (Manual) (4-12) % Eosinophils % (Manual) (0-5) % Macrocytosis Sodium 137 (135-145) mmol/L Potassium 4.2 (3.5-5.3) mmol/L Chloride 103 (100-110) mmol/L Carbon Dioxide 23 (21-32) mmol/L BUN 25 H (7-18) mg/dL Creatinine 1.9 H (0.70-1.30) mg/dL Est Cr Clr Drug Dosing 33.59 mL/min Estimated GFR (MDRD) 35 L (>60) BUN/Creatinine Ratio 13.2 (9-20) Glucose 286 H D (80-116) mg/dL Lactic Acid (0.4-2.2) mmol/L Calcium 8.5 L (8.6-10.2) mg/dL Total Bilirubin 0.7 (0.1-1.3) mg/dL AST 16 (5-25) IU/L ALT 29 (12-36) U/L Alkaline Phosphatase 70 (56-112) IU/L NT-Pro-B Natriuret Pep (<=450) pg/mL Total Protein 6.7 (6.0-8.0) g/dL Albumin 3.0 L (3.2-4.6) g/dL Globulin 3.7 g/dL Albumin/Globulin Ratio 0.8 Urine Color (YELLOW) Urine Appearance (CLEAR) Urine pH (5.0-6.5) Ur Specific [place] (1.010-1.025) Urine Protein (NEGATIVE) mg/dL Urine Glucose (UA) (NORMAL) mg/dL Urine Ketones (NEGATIVE) mg/dL Urine Occult Blood (NEGATIVE) Urine Nitrite (NEGATIVE) Urine Bilirubin (NEGATIVE) Urine Urobilinogen (NEGATIVE) mg/dL Ur Leukocyte Esterase (NEGATIVE) Urine RBC (0-5) Urine WBC (0-5) Ur Squamous Epith Cells (NS,R,O) Urine Bacteria (NS) [place] Results Last 24 Hours: Microbiology 11/12/18 11:50 Anaerobic Blood Culture - Final Blood - Venous Med Orders - Current: Current Medications Acetaminophen (Tylenol) 975 mg PO Q6H [facility] Last Admin: 11/13/18 03:02 Dose: 975 mg Albuterol (Proventil Neb Soln) 2.5 mg NEB Q4H PRN PRN Reason: sob Albuterol (Ventolin Hfa) 0 gm INH QIDRT [facility] Last Admin: 11/13/18 06:07 Dose: 1 inh Amlodipine Besylate (Norvasc) 5 mg PO DAILY [facility] Baclofen (Lioresal) 10 mg PO TID [facility] Last Admin: 11/12/18 20:52 Dose: 10 mg Cyclobenzaprine HCl (Flexeril) 10 mg PO TID PRN PRN Reason: Muscle Spasms Last Admin: 11/12/18 20:52 Dose: 10 mg Enoxaparin Sodium (Lovenox) 40 mg SUBCUT Q24H [facility] Last Admin: 11/12/18 18:43 Dose: 40 mg Finasteride (Proscar) 5 mg PO DAILY [facility] Gabapentin (Neurontin) 300 mg PO TID [facility] Glipizide (Glucotrol Xl) 10 mg PO BID [facility] Levofloxacin/Dextrose 750 mg/ (Premix) 150 mls @ 100 mls/hr IV Q24H [facility] Sodium Chloride (Normal Saline) 1,000 mls @ 125 mls/hr IV ASDIRECTED [facility] Last Admin: 11/13/18 04:17 Dose: 125 mls/hr Piperacillin Sod/Tazobactam (Sod 3.375 gm/ Sodium Chloride) 50 mls @ 100 mls/ hr IV Q6H [facility] Lidocaine (Lidoderm 5%) 1,400 mg TOP DAILY [facility] Methylprednisolone Sodium Succinate (Solu-Medrol) 125 mg IVPUSH Q8H [facility] Last Admin: 11/13/18 04:18 Dose: 125 mg Miscellaneous Information (Remove Patch) 2 ea TRDERM BEDTIME [facility] Last Admin: 11/12/18 20:53 Dose: Not Given Oxycodone HCl (Oxycodone) 5 mg PO Q6H PRN PRN Reason: Pain Polyethylene Glycol (Miralax) 17 gm PO DAILY [facility] Simvastatin (Zocor) 20 mg PO BEDTIME [facility] Last Admin: 11/12/18 20:52 Dose: 20 mg Sodium Chloride (Saline Flush) 10 ml FLUSH ASDIRECTED PRN PRN Reason: Keep Vein Open Last Admin: 11/12/18 15:34 Dose: 10 ml Tamsulosin HCl (Flomax) 0.4 mg PO BEDTIME [facility] Last Admin: 11/12/18 20:51 Dose: 0.4 mg Discontinued Medications Albuterol/Ipratropium (Duoneb 3.0-0.5 Mg/3 Ml) 3 ml NEB ONETIME STA Stop: 11/12/18 13:17 Last Admin: 11/12/18 13:19 Dose: 3 ml Gabapentin (Neurontin) 300 mg PO TID [facility] Last Admin: 11/12/18 20:51 Dose: 300 mg Glipizide (Glucotrol Xl) 10 mg PO BID [facility] Last Admin: 11/12/18 21:04 Dose: 10 mg Piperacillin Sod/Tazobactam (Sod 3.375 gm/ Sodium Chloride) 50 mls @ 100 mls/ hr IV Q6H [facility] Last Admin: 11/13/18 06:05 Dose: 100 mls/hr Ibuprofen (Motrin) 600 mg PO ONETIME ONE Stop: 11/12/18 13:03 Last Admin: 11/12/18 13:07 Dose: 600 mg Levofloxacin (Levaquin) 500 mg PO ONETIME ONE Stop: 11/12/18 14:03 Last Admin: 11/12/18 14:08 Dose: 500 mg Methylprednisolone Sodium Succinate (Solu-Medrol) 125 mg IM ONETIME ONE Stop: 11/12/18 13:18 Last Admin: 11/12/18 13:19 Dose: 125 mg Non-Formulary Medication (Vardenafil Hcl [Levitra]) 20 mg PO DAILY PRN PRN Reason: Other - Exam General: Alert, Oriented HEENT: Pupils Equal Neck: Supple Lungs: Crackles Cardiovascular: Regular Rate GI/Abdominal Exam: Normal Bowel Sounds - Problem List & Annotations (1) CAP (community acquired pneumonia) SNOMED Code(s): 152149466 Code(s): J18.9 - PNEUMONIA, UNSPECIFIED ORGANISM Status: Acute Current Visit: Yes Qualifiers: Laterality: right (2) HTN (hypertension) SNOMED Code(s): 84077001 Code(s): I10 - ESSENTIAL (PRIMARY) HYPERTENSION Status: Acute Current Visit: Yes Qualifiers: Hypertension type: essential hypertension Qualified Code(s): I10 - Essential (primary) hypertension (3) Diabetes type 2, uncontrolled SNOMED Code(s): 748076094, 863273331 Code(s): E11.65 - TYPE 2 DIABETES MELLITUS WITH HYPERGLYCEMIA Status: Chronic Current Visit: Yes Qualifiers: Glycemic state: with hyperglycemia Qualified Code(s): E11.65 - Type 2 diabetes mellitus with hyperglycemia (4) COPD exacerbation SNOMED Code(s): 966232652 Code(s): J44.1 - CHRONIC OBSTRUCTIVE PULMONARY DISEASE W (ACUTE) EXACERBATION Status: Chronic Current Visit: Yes (5) Back pain SNOMED Code(s): 103497423 Code(s): M54.9 - DORSALGIA, UNSPECIFIED Status: Chronic Current Visit: No Qualifiers: Back pain location: low back pain Chronicity: unspecified Back pain laterality: bilateral Sciatica presence: without sciatica Qualified Code(s) : M54.5 - Low back pain (6) CKD (chronic kidney disease) SNOMED Code(s): 557179854 Code(s): N18.9 - CHRONIC KIDNEY DISEASE, UNSPECIFIED Status: Acute Current Visit: Yes - Problem List Review Problem List Initiated/Reviewed/Updated: Yes - My Orders Last 24 Hours: My Active Orders 11/12/18 18:00 Enoxaparin [Lovenox] 40 mg SUBCUT Q24H 11/12/18 18:15 Sodium Chloride 0.9% [Normal Saline] 1,000 ml IV ASDIRECTED 11/12/18 20:00 methylPREDNISolone Sod Succ [Solu-MEDROL] 125 mg IVPUSH Q8H 11/13/18 07:58 VL Duplex Lwr Ext Veins Ltd Lt [US] Routine VL Duplex Lwr Ext Veins Ltd Rt [US] Routine 11/13/18 12:00 Piperacillin/Tazobactam [Zosyn] 3.375 gm Sodium Chloride 0.9% [Normal Saline] 50 ml IV Q6H 11/13/18 13:00 Levofloxacin/Dextrose 5%-Water [Levaquin in D5W 750 MG/150 ML] 750 mg Premix Bag 1 bag IV Q24H 11/14/18 05:11 BASIC METABOLIC PANEL,BMP [CHEM] AM CBC WITH AUTO DIFF [HEME] AM - Plan Plan:: I gave him IV antibiotics overnight, and fluids. He feels better this morning. I will discontinue IV fluids. Due to his creatinine, I'm unable to obtain a CT angiogram. I will instead get ultrasound of the lower extremity veins. Ambulate , incentive spirometry, and hope to send him home tomorrow if symptoms are not improved
[2018-11-13] MEDS: Gabapentin 300 MG Cap PO SCH ×3 (08:57→21:20)
[2018-11-13] MEDS ORDERED: Levofloxacin/Dextrose 5%-Water 750 MG in Premix Bag 1 BAG IV SCH (13:00)
--- NOTE | 2018-11-13 14:55 | US ---
INDICATION: Swollen painful legs, high D-dimer, question DVT. DUPLEX ULTRASOUND, RIGHT LOWER EXTREMITY VEINS: Utilizing 2-D real time, duplex Doppler spectral analysis and color flow imaging, examination of the right lower extremity veins, including the common femoral vein, proximal greater saphenous vein, proximal deep femoral vein, proximal femoral vein, mid femoral vein, distal femoral vein, popliteal vein, posterior tibial vein, anterior tibial vein, and peroneal vein, revealed no evidence of deep venous thrombosis or obstruction. Compression views showed no abnormal lack of compression to suggest thrombosis. No evidence of incompetence of the valves was identified. IMPRESSION: Duplex ultrasound, right lower extremity veins, shows no evidence of deep venous thrombosis or incompetence. DUPLEX ULTRASOUND, LEFT LOWER EXTREMITY VEINS: Utilizing 2-D real time, duplex Doppler spectral analysis and color flow imaging, examination of the left lower extremity veins, including the common femoral vein, proximal greater saphenous vein, proximal deep femoral vein, proximal femoral vein, mid femoral vein, distal femoral vein, popliteal vein, posterior tibial vein, anterior tibial vein , and peroneal vein, revealed no evidence of deep venous thrombosis or obstruction. Compression views showed no abnormal lack of compression to suggest thrombosis. No evidence of incompetence of the valves was identified. IMPRESSION: Duplex ultrasound, left lower extremity veins, shows no evidence of deep venous thrombosis or incompetence. [facility]
[2018-11-13] MEDS: Sodium Chloride 0.9% 10 ML Syringe FLUSH PRN ×3 (15:44→19:58)
[2018-11-13] MEDS: Enoxaparin 40 MG/0.4 ML Syringe SUBCUT SCH (17:23)
[2018-11-13] MEDS: Simvastatin 20 MG Tab PO SCH (21:19)
[2018-11-13] MEDS: Tamsulosin 0.4 MG Cap.ER PO SCH (21:19)
[2018-11-14] MEDS: Piperacillin/Tazobactam 3.375 GM in Sodium Chloride 0.9% 50 ML IV SCH ×2 (00:10→06:15)
[2018-11-14] MEDS: Sodium Chloride 0.9% 10 ML Syringe FLUSH PRN ×3 (00:36→06:44)
[2018-11-14] MEDS: Acetaminophen 325 MG Tab PO SCH ×2 (03:16→08:17)
[2018-11-14] MEDS: methylPREDNISolone Sodium Succinate 125 MG/2 ML SDV IVPUSH SCH (03:23)
[2018-11-14] MEDS: Albuterol 8 GM Inhaler INH SCH (06:44)
[2018-11-14] MEDS: Lidocaine 5% 700 MG Patch TOP SCH (08:18)
[2018-11-14] MEDS: glipiZIDE 10 MG Tab.ER PO SCH (08:18)
[2018-11-14] MEDS: Baclofen 10 MG Tab PO SCH (08:19)
[2018-11-14] MEDS: Polyethylene Glycol 3350 Powder 17 GM Packet PO SCH (08:20)
[2018-11-14] MEDS: amLODIPine 5 MG Tab PO SCH (08:20)
[2018-11-14] MEDS: Finasteride 5 MG Tab PO SCH (08:21)
[2018-11-14 08:22] VITALS: BP 144/82
[2018-11-14] MEDS: Gabapentin 300 MG Cap PO SCH (08:31)
--- NOTE | 2018-11-14 08:56 | PCM.PN ---
- General Info Date of Service: 11/14/18 Subjective Update: Gordon feels much better, is off oxygen and is temperature is come down. He still has a cough but denies any chest pain,wishes to go home - Review of Systems General: Reports: No Symptoms HEENT: Reports: No Symptoms Pulmonary: Reports: Cough Cardiovascular: Reports: No Symptoms Gastrointestinal: Reports: No Symptoms Genitourinary: Reports: No Symptoms Musculoskeletal: Reports: No Symptoms - Patient Data Vitals - Most Recent: Last Vital Signs Temp 97.7 F 11/14/18 08:00 Pulse 87 11/14/18 08:00 Resp 20 11/14/18 08:00 BP 144/82 H 11/14/18 08:20 Pulse Ox 96 11/14/18 08:00 Weight - Most Recent: 113.534 kg I&O - Last 24 Hours: Intake & Output 11/13/18 11/14/18 11/14/18 22:59 06:59 14:59 Intake Total 50 Balance 50 Lab Results Last 24 Hours: Laboratory Results - last 24 hr 11/14/18 11/14/18 Range/Units 06:02 06:02 WBC 15.7 H (4.5-12.0) X10-3/uL RBC 2.74 L (4.30-5.75) x10(6)uL Hgb 9.8 L (13.5-17.8) g/dL Hct 28.5 L (30.0-51.3) % MCV 103.9 H (80-96) fL MCH 35.8 H (27.7-33.6) pg MCHC 34.4 (32.2-35.4) g/dL RDW 13.5 (11.5-15.5) % Plt Count 341 (125-369) X10(3)uL MPV 7.6 (7.4-10.4) fL Add Manual Diff Yes Neutrophils % (Manual) 90 H (46-82) % Band Neutrophils % 7 H (0-6) % Lymphocytes % (Manual) 2 L (13-37) % Monocytes % (Manual) 1 L (4-12) % Macrocytosis Moderate H Sodium 139 (135-145) mmol/L Potassium 4.2 (3.5-5.3) mmol/L Chloride 104 (100-110) mmol/L Carbon Dioxide 23 (21-32) mmol/L BUN 36 H D (7-18) mg/dL Creatinine 1.8 H (0.70-1.30) mg/dL Est Cr Clr Drug Dosing 35.46 mL/min Estimated GFR (MDRD) 37 L (>60) BUN/Creatinine Ratio 20.0 (9-20) Glucose 269 H (80-116) mg/dL Calcium 8.5 L (8.6-10.2) mg/dL [place] Results Last 24 Hours: Microbiology 11/12/18 13:55 Aerobic Blood Culture - Preliminary Blood - Venous - Lab Draw NO GROWTH AFTER 1 DAY Anaerobic Blood Culture - Preliminary NO GROWTH AFTER 1 DAY 11/12/18 11:50 Aerobic Blood Culture - Preliminary Blood - Venous NO GROWTH AFTER 1 DAY Anaerobic Blood Culture - Final Med Orders - Current: Current Medications Acetaminophen (Tylenol) 975 mg PO Q6H [facility] Last Admin: 11/14/18 08:17 Dose: 975 mg Albuterol (Proventil Neb Soln) 2.5 mg NEB Q4H PRN PRN Reason: sob Albuterol (Ventolin Hfa) 0 gm INH QIDRT [facility] Last Admin: 11/14/18 06:44 Dose: 1 inh Amlodipine Besylate (Norvasc) 5 mg PO DAILY [facility] Last Admin: 11/14/18 08:20 Dose: 5 mg Baclofen (Lioresal) 10 mg PO TID [facility] Last Admin: 11/14/18 08:19 Dose: 10 mg Cyclobenzaprine HCl (Flexeril) 10 mg PO TID PRN PRN Reason: Muscle Spasms Last Admin: 11/12/18 20:52 Dose: 10 mg Enoxaparin Sodium (Lovenox) 40 mg SUBCUT Q24H [facility] Last Admin: 11/13/18 17:23 Dose: 40 mg Finasteride (Proscar) 5 mg PO DAILY [facility] Last Admin: 11/14/18 08:21 Dose: 5 mg Gabapentin (Neurontin) 300 mg PO TID [facility] Last Admin: 11/14/18 08:31 Dose: 300 mg Glipizide (Glucotrol Xl) 10 mg PO BID [facility] Last Admin: 11/14/18 08:18 Dose: 10 mg Piperacillin Sod/Tazobactam (Sod 3.375 gm/ Sodium Chloride) 50 mls @ 100 mls/ hr IV Q6H [facility] Last Admin: 11/14/18 06:15 Dose: 100 mls/hr Levofloxacin/Dextrose (Levaquin In D5w 750 Mg/150 Ml) 150 mls @ 100 mls/hr IV Q48H [facility] Lidocaine (Lidoderm 5%) 1,400 mg TOP DAILY [facility] Last Admin: 11/14/18 08:18 Dose: 1,400 mg Methylprednisolone Sodium Succinate (Solu-Medrol) 125 mg IVPUSH Q8H [facility] Last Admin: 11/14/18 03:23 Dose: 125 mg Miscellaneous Information (Remove Patch) 2 ea TRDERM BEDTIME [facility] Last Admin: 11/13/18 21:20 Dose: 2 ea Oxycodone HCl (Oxycodone) 5 mg PO Q6H PRN PRN Reason: Pain Polyethylene Glycol (Miralax) 17 gm PO DAILY [facility] Last Admin: 11/14/18 08:20 Dose: Not Given Simvastatin (Zocor) 20 mg PO BEDTIME [facility] Last Admin: 11/13/18 21:19 Dose: 20 mg Sodium Chloride (Saline Flush) 10 ml FLUSH ASDIRECTED PRN PRN Reason: Keep Vein Open Last Admin: 11/14/18 06:44 Dose: 10 ml Tamsulosin HCl (Flomax) 0.4 mg PO BEDTIME [facility] Last Admin: 11/13/18 21:19 Dose: 0.4 mg Discontinued Medications Albuterol/Ipratropium (Duoneb 3.0-0.5 Mg/3 Ml) 3 ml NEB ONETIME STA Stop: 11/12/18 13:17 Last Admin: 11/12/18 13:19 Dose: 3 ml Gabapentin (Neurontin) 300 mg PO TID [facility] Last Admin: 11/12/18 20:51 Dose: 300 mg Glipizide (Glucotrol Xl) 10 mg PO BID [facility] Last Admin: 11/12/18 21:04 Dose: 10 mg Levofloxacin/Dextrose 750 mg/ (Premix) 150 mls @ 100 mls/hr IV Q24H [facility] Last Admin: 11/13/18 14:10 Dose: 100 mls/hr Piperacillin Sod/Tazobactam (Sod 3.375 gm/ Sodium Chloride) 50 mls @ 100 mls/ hr IV Q6H [facility] Last Admin: 11/13/18 06:05 Dose: 100 mls/hr Sodium Chloride (Normal Saline) 1,000 mls @ 125 mls/hr IV ASDIRECTED [facility] Last Admin: 11/13/18 04:17 Dose: 125 mls/hr Ibuprofen (Motrin) 600 mg PO ONETIME ONE Stop: 11/12/18 13:03 Last Admin: 11/12/18 13:07 Dose: 600 mg Levofloxacin (Levaquin) 500 mg PO ONETIME ONE Stop: 11/12/18 14:03 Last Admin: 11/12/18 14:08 Dose: 500 mg Methylprednisolone Sodium Succinate (Solu-Medrol) 125 mg IM ONETIME ONE Stop: 11/12/18 13:18 Last Admin: 11/12/18 13:19 Dose: 125 mg Non-Formulary Medication (Vardenafil Hcl [Levitra]) 20 mg PO DAILY PRN PRN Reason: Other - Exam General: Alert, Oriented HEENT: Pupils Equal Neck: Supple, Trachea Midline, No JVD Lungs: Crackles Cardiovascular: Regular Rate, Regular Rhythm - Problem List & Annotations (1) CAP (community acquired pneumonia) SNOMED Code(s): 302751614 Code(s): J18.9 - PNEUMONIA, UNSPECIFIED ORGANISM Status: Acute Current Visit: Yes Qualifiers: Laterality: right (2) HTN (hypertension) SNOMED Code(s): 88438671 Code(s): I10 - ESSENTIAL (PRIMARY) HYPERTENSION Status: Acute Current Visit: Yes Qualifiers: Hypertension type: essential hypertension Qualified Code(s): I10 - Essential (primary) hypertension (3) Diabetes type 2, uncontrolled SNOMED Code(s): 931847049, 122534495 Code(s): E11.65 - TYPE 2 DIABETES MELLITUS WITH HYPERGLYCEMIA Status: Chronic Current Visit: Yes Qualifiers: Glycemic state: with hyperglycemia Qualified Code(s): E11.65 - Type 2 diabetes mellitus with hyperglycemia (4) COPD exacerbation SNOMED Code(s): 023252995 Code(s): J44.1 - CHRONIC OBSTRUCTIVE PULMONARY DISEASE W (ACUTE) EXACERBATION Status: Chronic Current Visit: Yes (5) Back pain SNOMED Code(s): 359929807 Code(s): M54.9 - DORSALGIA, UNSPECIFIED Status: Chronic Current Visit: No Qualifiers: Back pain location: low back pain Chronicity: unspecified Back pain laterality: bilateral Sciatica presence: without sciatica Qualified Code(s) : M54.5 - Low back pain (6) CKD (chronic kidney disease) SNOMED Code(s): 070877103 Code(s): N18.9 - CHRONIC KIDNEY DISEASE, UNSPECIFIED Status: Acute Current Visit: Yes Qualifiers: Chronic kidney disease stage: stage 3 (moderate) Qualified Code(s): N18.3 - Chronic kidney disease, stage 3 (moderate) - Problem List Review Problem List Initiated/Reviewed/Updated: Yes - My Orders Last 24 Hours: My Active Orders 11/13/18 08:54 Incentive Spirometry [RT Incentive Spirometry] [RC] Q4HWA 11/13/18 12:00 Piperacillin/Tazobactam [Zosyn] 3.375 gm Sodium Chloride 0.9% [Normal Saline] 50 ml IV Q6H 11/15/18 13:00 Levofloxacin/Dextrose 5%-Water [Levaquin in D5W 750 MG/150 ML] 150 ml IV Q48H - Plan Plan:: Leyva has improved remarkably. The ultrasound for DVT was negative. Renal folks in formalin 48 hours. Temperatures been normal in the last 36 hours. I'll discharge him home today on Levaquin 750 mg every 48 hours and prednisone for 5 days. I've advised him to cease PCP in one week.
--- NOTE | 2018-11-14 16:05 | DISCH ---
DISCHARGE DATE: 11/14/2018 REASON FOR ADMISSION: 1. Hospital-acquired pneumonia. 2. Chronic obstructive pulmonary disease exacerbation. 3. Type 2 diabetes. 4. Obesity. 5. Hypertension. 6. Chronic back pain. 7. Chronic kidney disease. BRIEF HISTORY AND HOSPITAL COURSE: This is a 73-year-old male who had been at the [facility] for hernia repair at the end of October, was admitted 2 days ago with fever and cough and chest x-ray suggestive of pneumonia. He was given Levaquin and Zosyn and initially some oxygen supplementation. His symptoms improved remarkably. He was off oxygen and did not complain of any fever upon discharge. He had an ultrasound of the lower extremities to rule out DVT, but due to his creatinine, we could not do a CT scan of the chest. I discharged him today, the and advised him to see his PCP in 1 week at the [facility]. DISCHARGE MEDICATIONS: 1. Levaquin 750 mg q.48 hours. 2. Prednisone 10 mg b.i.d. for 5 days. He will also go home on his previous medications that are: 1. Amlodipine 5 mg a day. 2. Baclofen 10 mg at bedtime. 3. Proscar 5 mg a day. 4. Gabapentin 300 mg t.i.d. 5. Glipizide 10 mg a day. 6. Topical lidocaine 1400 mg daily. 7. Oxycodone 5 mg q.6 hours p.r.n. 8. Simvastatin 10 mg at bedtime. 9. MiraLAX 17 g a day. 10.Flomax 0.4 mg at bedtime. Please note that I spent more than 40 minutes in the discharge of the patient. /[id number] FLORA/HANNAL
[2018-11-15] MEDS ORDERED: Levofloxacin/Dextrose 5%-Water 150 ML IV SCH (13:00)
== END 2018-11-14 11:05 | disposition home or self-care (01) | DRG 190 ==
LOC: FB.ED 11:12 → FB.MS 14:20
PROVIDERS: ADMIT Family Medicine; ATTEND Family Medicine
DX: J44.0 Chronic obstructive pulmonary disease with (acute) lower respiratory infection (principal); J18.9 Pneumonia, unspecified organism; Y95 Nosocomial condition; J44.1 Chronic obstructive pulmonary disease with (acute) exacerbation; Z87.891 Personal history of nicotine dependence; I12.9 Hypertensive chronic kidney disease with stage 1 through stage 4 chronic kidney disease, or unspecified chronic kidney disease; E11.22 Type 2 diabetes mellitus with diabetic chronic kidney disease; N18.3 Chronic kidney disease, stage 3 (moderate); E11.65 Type 2 diabetes mellitus with hyperglycemia; Z98.890 Other specified postprocedural states; E78.00 Pure hypercholesterolemia, unspecified; M54.5 Low back pain; G89.29 Other chronic pain; M19.90 Unspecified osteoarthritis, unspecified site; E66.9 Obesity, unspecified; Z68.38 Body mass index [BMI] 38.0-38.9, adult; Z79.84 Long term (current) use of oral hypoglycemic drugs; N42.9 Disorder of prostate, unspecified
CPT/HCPCS: 36415; 71046; 74019; 80048; 80053; 81001; 83605; 83880; 85025; 87040; 93970; 94150; 94640; 96372; 99285; 99285-25; A9270-GY; J1650; J1956; J2543; J2930; J7030; J7050; J7620-GY

== ENCOUNTER 2020-07-28 00:21 | Emergency (ER) | payer OTHER ==
--- NOTE | 2020-07-28 01:01 | EDM.PDOC ---
ED HPI GENERAL MEDICAL PROBLEM - General Chief Complaint: General Stated Complaint: SOB, Syncopal Episode Time Seen by Provider: 07/28/20 00:30 Source of Information: Reports: Patient History Limitations: Reports: No Limitations - History of Present Illness INITIAL COMMENTS - FREE TEXT/NARRATIVE: c/o syncope pt ate tacos at 6p for supper, played cards in evening, he left with his girlfriend to drive home, got in his car, felt lightheaded and dizzy, waited a minute, began to back up when he became unresponsive and girlfriend reached across and put the car in park. One minute later he was alert and his normal self, denies sxs here altho states he felt better when give O2 by EMS, no cp, no n/v, no f/c/d, no cough/sob [facility] [place] [facility], says docs were trying to decide whether to give him home O2 or not, not on home O2 no alc since 1963, no cigs since 1981 lives with girlfriend he remembers "hasping for air" and feeling dizzy prior to syncope feels fine now, talkative EKG in ED is NSR, rate 72, no ST changes, no [facility] apparently reported afib at the scene, EMS said that they would fax us their EKG, not here yet - Related Data Allergies Allergy/AdvReac Type Severity Reaction Status Date / Time No Known Allergies Allergy Verified 07/28/20 00:48 Home Meds: Home Meds Albuterol Sulfate [Proventil Hfa] 2 puff INH Q4H PRN 11/29/16 [History] Finasteride 5 mg PO DAILY 11/29/16 [History] Tamsulosin [Flomax] 0.4 mg PO BEDTIME 11/29/16 [History] amLODIPine [Norvasc] 10 mg PO DAILY 11/29/16 [History] glipiZIDE [Glucotrol XL] 10 mg PO BID 11/29/16 [History] Baclofen 10 mg PO BID 06/23/18 [History] Gabapentin [Neurontin] 300 mg PO BID 06/23/18 [History] Lidocaine 5% [Lidoderm 5%] 2 patch TOP DAILY 06/23/18 [History] Acetaminophen [Tylenol] 975 mg PO Q6H 11/12/18 [History] Albuterol [Proventil Neb Soln] 1 dose IH Q4H PRN 07/28/20 [History] Aspirin 81 mg PO DAILY 07/28/20 [History] Budesonide/Formoterol Fumarate [Symbicort 160-4.5 Mcg Inhaler] 2 puff IH BID 07/28/20 [History] Simvastatin 40 mg PO BEDTIME 07/28/20 [History] carvediloL [Coreg] 6.25 mg PO BID 07/28/20 [History] Past Medical History Cardiovascular History: Reports: High Cholesterol, Hypertension Respiratory History: Reports: Asthma Genitourinary History: Reports: Prostate Disorder Musculoskeletal History: Reports: Arthritis Neurological History: Reports: Other (See Below) Other Neuro History: numbness R leg from back. Endocrine/Metabolic History: Reports: Diabetes, Type I, Obesity/BMI 30+ Dermatologic History: Reports: Other (See Below) Other Dermatologic History: freq rashes - Infectious Disease History Infectious Disease History: Reports: Chicken Pox - Past Surgical History GI Surgical History: Reports: Colonoscopy, Hernia, Inguinal, Hernia Repair/Other Male Surgical History: Reports: None Neurological Surgical History: Reports: Other (See Below) Other Neurological Surgeries/Procedures: back surgery x 3 Musculoskeletal Surgical History: Reports: Other (See Below) Other Musculoskeletal Surgeries/Procedures:: L3-4 laminectomy 11-22-16 Social & Family History - Family History Family Medical History: No Pertinent Family History - Caffeine Use Caffeine Use: Reports: None ED ROS GENERAL - Review of Systems Review Of Systems: See Below Constitutional: Reports: No Symptoms HEENT: Reports: No Symptoms Respiratory: Reports: Shortness of Breath Cardiovascular: Reports: No Symptoms, Edema. Denies: Chest Pain, Palpitations Endocrine: Reports: No Symptoms GI/Abdominal: Reports: No Symptoms : Reports: No Symptoms Musculoskeletal: Reports: No Symptoms Skin: Reports: No Symptoms Neurological: Reports: No Symptoms Psychiatric: Reports: No Symptoms Hematologic/Lymphatic: Reports: No Symptoms Immunologic: Reports: No Symptoms ED EXAM, GENERAL - Physical Exam Exam: See Below Exam Limited By: No Limitations General Appearance: Alert, WD/WN, No Apparent Distress Head: Atraumatic Neck: Normal Inspection, Supple, Non-Tender, Full Range of Motion. No: Lymphadenopathy (R), Lymphadenopathy (L) Respiratory/Chest: No Respiratory Distress, Lungs Clear, Normal Breath Sounds, No Accessory Muscle Use, Chest Non-Tender, Other (no dyspnea, no cough, no purse lips, no retractions, no accessory muscles, talkative in 10-word sentences, no distress) Cardiovascular: Regular Rate, Rhythm, No Murmur, Other (3+ edema LEs to knees, 1-2+ edema to groin b/l, symmetric) GI/Abdominal: Soft, Non-Tender, No Organomegaly, No Distention Back Exam: Normal Inspection, Full Range of Motion. No: CVA Tenderness (R), CVA Tenderness (L) Extremities: Normal Inspection, Normal Range of Motion, Non-Tender Neurological: Alert, Oriented, CN II-XII Intact, Normal Cognition, Normal Gait, No Motor/Sensory Deficits Psychiatric: Normal Affect, Normal Mood Skin Exam: Warm, Dry, Intact, Normal Color, No Rash Lymphatic: No Adenopathy Course - Vital Signs Last Recorded V/S: Last Vital Signs Temp 36.5 C 07/28/20 00:25 Pulse Resp BP Pulse Ox Orthostatic Blood Pressure [ 111/54 Standing] Orthostatic Blood Pressure [ 134/56 Sitting] Orthostatic Blood Pressure [ 134/65 Supine] - Orders/Labs/Meds Orders: Active Orders 24 hr Category Date Time Status EKG Documentation Completion [RC] ASDIRECTED Care 07/28/20 00:53 Active Orthostatic Vital Signs [RC] ASDIRECTED Care 07/28/20 00:55 Active Chest 2V [CR] Stat Exams 07/28/20 00:54 Taken CBC WITH AUTO DIFF [HEME] Stat Lab 07/28/20 01:20 Received EKG 12 Lead [EK] Routine Ther 07/28/20 00:52 Ordered Labs: Laboratory Tests 07/28/20 07/28/20 07/28/20 Range/Units 01:20 01:20 01:20 PT (9.0-11.1) sec INR (1.00-1.24) D-Dimer, Quantitative 0.81 H (0.0-0.59) mg/LFEU Sodium 142 (135-145) mmol/L Potassium 3.9 (3.5-5.3) mmol/L Chloride 104 (100-110) mmol/L Carbon Dioxide 30 (21-32) mmol/L BUN 17 D (7-18) mg/dL Creatinine 1.6 H (0.70-1.30) mg/dL Est Cr Clr Drug Dosing 39.28 mL/min Estimated GFR (MDRD) 42 L (>60) BUN/Creatinine Ratio 10.6 (9-20) Glucose 220 H (80-116) mg/dL Calcium 8.7 (8.6-10.2) mg/dL Total Bilirubin 0.7 (0.1-1.3) mg/dL AST 29 H D (5-25) IU/L ALT 72 H D (12-36) U/L Alkaline Phosphatase 83 (56-112) IU/L Troponin I 21.5 (4.0-60.3) pg/mL C-Reactive Protein (0.5-0.9) mg/dL NT-Pro-B Natriuret Pep 911 H (<=450) pg/mL Total Protein 6.8 (6.0-8.0) g/dL Albumin 3.6 (3.2-4.6) g/dL Globulin 3.2 g/dL Albumin/Globulin Ratio 1.1 TSH, Ultra Sensitive 3.50 (0.36-3.74) IU/mL Urine Color (YELLOW) Urine Appearance (CLEAR) Urine pH (5.0-6.5) Ur Specific [place] (1.010-1.025) Urine Protein (NEGATIVE) mg/dL Urine Glucose (UA) (NORMAL) mg/dL Urine Ketones (NEGATIVE) mg/dL Urine Occult Blood (NEGATIVE) Urine Nitrite (NEGATIVE) Urine Bilirubin (NEGATIVE) Urine Urobilinogen (NEGATIVE) mg/dL Ur Leukocyte Esterase (NEGATIVE) Urine RBC (0-5) Urine WBC (0-5) Ur Squamous Epith Cells (NS,R,O) Urine Bacteria (NS) 07/28/20 07/28/20 07/28/20 Range/Units 01:20 01:20 01:25 PT 11.1 (9.0-11.1) sec INR 1.03 (1.00-1.24) D-Dimer, Quantitative (0.0-0.59) mg/LFEU Sodium (135-145) mmol/L Potassium (3.5-5.3) mmol/L Chloride (100-110) mmol/L Carbon Dioxide (21-32) mmol/L BUN (7-18) mg/dL Creatinine (0.70-1.30) mg/dL Est Cr Clr Drug Dosing mL/min Estimated GFR (MDRD) (>60) BUN/Creatinine Ratio (9-20) Glucose (80-116) mg/dL Calcium (8.6-10.2) mg/dL Total Bilirubin (0.1-1.3) mg/dL AST (5-25) IU/L ALT (12-36) U/L Alkaline Phosphatase (56-112) IU/L Troponin I (4.0-60.3) pg/mL C-Reactive Protein 0.5 (0.5-0.9) mg/dL NT-Pro-B Natriuret Pep (<=450) pg/mL Total Protein (6.0-8.0) g/dL Albumin (3.2-4.6) g/dL Globulin g/dL Albumin/Globulin Ratio TSH, Ultra Sensitive (0.36-3.74) IU/mL Urine Color Yellow (YELLOW) Urine Appearance Clear (CLEAR) Urine pH 5.0 (5.0-6.5) Ur Specific [place] 1.025 (1.010-1.025) Urine Protein 30 H (NEGATIVE) mg/dL Urine Glucose (UA) 250 H (NORMAL) mg/dL Urine Ketones Negative (NEGATIVE) mg/dL Urine Occult Blood Negative (NEGATIVE) Urine Nitrite Negative (NEGATIVE) Urine Bilirubin Negative (NEGATIVE) Urine Urobilinogen 1 H (NEGATIVE) mg/dL Ur Leukocyte Esterase Negative (NEGATIVE) Urine RBC 0-5 (0-5) Urine WBC 0-5 (0-5) Ur Squamous Epith Cells Occasional (NS,R,O) Urine Bacteria Few H (NS) - Re-Assessments/Exams Free Text/Narrative Re-Assessment/Exam: 07/28/20 02:14 CxR 2v on prelim ED read with no effusion or infiltrates or vascular congestion pt is orthostatic here with BP 134/65 supine, 134/56 sit, 111/54 stand with HR in 70s throughout PO 100% on 3 l/min, 92-94% on RA with walking, however he promptly dropped to 85% on RA when sitting pt does have a prominent abd (as well as an elevated R hemidiaphragm) and appears to be pickwickian, likely had dec'd excursion of his diaphragm after getting behind the wheel of his car--and was already hypoxic after exertioning himself walking to the car, and became even more hypoxic 07/28/20 02:15 Dr Geovani FERREIRA at [facility] in [place] who accepted pt in transfer no COVID sxs or concerns (no temp, CRP neg, multiple COVIDs in past including last week) pt appears to be a candidate for home O2, which had been discussed at some length 2w ago 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 [facility], pt states he feels better when on O2m does uses CPAP at night, [facility] whether he had had [facility] exposure, may even have pul HTN pt does have mild increase d-dimer with unknown baseline which does not appear to be clinical sig as pt's hypoxia is chronic with exacerbation with exertion and decreased diaphragmatic excursion Departure - Departure Time of Disposition: 02:34 Disposition: DC/[facility] Condition: Fair Clinical Impression: Syncope, Hypoxia, Orthostasis - Discharge Information *PRESCRIPTION DRUG MONITORING PROGRAM REVIEWED*: Not Applicable *COPY OF PRESCRIPTION DRUG MONITORING REPORT IN PATIENT JESSIKA: Not Applicable Referrals: PCP,Not In Area [Primary Care Provider] - Forms: ED Department Discharge Sepsis Event Note (ED) - Evaluation Sepsis Screening Result: No Definite Risk - Focused Exam Vital Signs: Vital Signs Temp 07/28/20 00:25 36.5 C - My Orders Last 24 Hours: My Active Orders 07/28/20 00:52 EKG 12 Lead [EK] Routine 07/28/20 00:53 EKG Documentation Completion [RC] ASDIRECTED 07/28/20 00:54 Chest 2V [CR] Stat 07/28/20 00:55 Orthostatic Vital Signs [RC] ASDIRECTED 07/28/20 01:20 CBC WITH AUTO DIFF [HEME] Stat - Assessment/Plan Last 24 Hours: My Active Orders 07/28/20 00:52 EKG 12 Lead [EK] Routine 07/28/20 00:53 EKG Documentation Completion [RC] ASDIRECTED 07/28/20 00:54 Chest 2V [CR] Stat 07/28/20 00:55 Orthostatic Vital Signs [RC] ASDIRECTED 07/28/20 01:20 CBC WITH AUTO DIFF [HEME] Stat
--- NOTE | 2020-07-28 09:58 | CR ---
INDICATION: Syncope. CHEST TWO VIEWS: PA and lateral views of the chest 07/28/20 were compared with 11/12/18. Overlying EKG leads and device terminal noted. The heart did not appear grossly enlarged, but was prominent and may be slightly enlarged compared with the previous study. The right hemidiaphragm appears to be elevated significantly compared with the previous study which may be on the basis of atelectasis. Infiltrate seen on the previous examination appears to have resolved. However, heavy markings at the medial lung bases make it difficult to exclude areas of patchy bronchopneumonia. The aorta is somewhat tortuous. Flowing hyperostotic changes are again noted the mid to lower thoracic spine and to a lesser extent in the upper thoracic spine compatible with DISH. Somewhat flattened diaphragm leads, prominent AP diameter and hyperaeration suggest COPD - possibly progressive. IMPRESSION: 1. Elevated right hemidiaphragm now noted raising question of atelectasis. No definite active infiltrate or effusion is noted. 2. Probable ASHD. 3. Probable COPD. 4. DISH. MTDD
== END 2020-07-28 03:55 ==
LOC: FB.ED 00:21
DX: R55 Syncope and collapse (principal); R09.02 Hypoxemia; E78.00 Pure hypercholesterolemia, unspecified; I10 Essential (primary) hypertension; J45.909 Unspecified asthma, uncomplicated; E10.9 Type 1 diabetes mellitus without complications; E66.9 Obesity, unspecified; Z68.36 Body mass index [BMI] 36.0-36.9, adult; Z79.899 Other long term (current) drug therapy; Z79.82 Long term (current) use of aspirin
CPT/HCPCS: 36415; 71046; 80053; 81001; 83880; 84443; 84484; 85025; 85379; 85610; 86140; 93005; 99285; 99285-25